=== PATIENT | male | born 1980 | race Caucasian/White ===

== ENCOUNTER → 2017-01-28 | Day surgery (SDC) | payer OTHER ==
[~2017-01-28] VITALS: Ht 172.7 cm; Wt 83.9 kg
[2017-01-28 06:45] VITALS: BP 124/85
[2017-01-28 08:14] VITALS: BP 120/76
[2017-01-28 08:25] VITALS: BP 123/76
[2017-01-28 08:45] VITALS: BP 125/88
== END | disposition home or self-care (01) ==
LOC: SDC 01-24 08:00
DX: K57.30 Diverticulosis of large intestine without perforation or abscess without bleeding (principal); K64.8 Other hemorrhoids; K62.5 Hemorrhage of anus and rectum; K21.9 Gastro-esophageal reflux disease without esophagitis; Z80.9 Family history of malignant neoplasm, unspecified; Z82.49 Family history of ischemic heart disease and other diseases of the circulatory system